=== PATIENT | male | born 1975 | race Caucasian/White ===

== ENCOUNTER 2019-08-07 09:55 | Emergency (ER) | payer BC, SELFPAY ==
[2019-08-07] VITALS (10 sets, daily range): BP systolic 120–127; BP diastolic 84–94; PULSE 74–91; RESP 11–19; TEMP 36.6–36.8; O2SAT 93–97
--- NOTE | 2019-08-07 10:00 | ED.GENADUL_ITS ---
Discharge Plan Disposition Patient Disposition: HOME Condition: Improving Discharge Details Chief Complaint: GenMedical Clinical Impression: Headache, migraine Primary Care Provider: Marilin,Local ED Provider: Jim Raya Home Meds and New Rx's Prescriptions: No Action No Known Home Meds RF: 0 Discharge Instructions Additional Instructions: Home to rest today. Small, frequent sips of fluids so that you maintain hydration. Please sleep in a dark quiet room. May continue Tylenol next dose in 2 hours or ibuprofen next dose in 4 hours if needed. Medical Decision Making 44-year-old male presents from [facility] where he developed acute right-sided headache similar to previous migraines. He is not hypertensive or febrile, has not had trauma. Neurologic exam is without focal deficits. IV was placed, fluids initiated, patient given parenteral medications with Toradol, antiemetic, dexamethasone. He had significant improvement of the headache to approximately 2-3 out of 10. His vital signs remained normal. Consistent with migraine headache that is improving. We will discharged home at this time. He understands homecare as well as return precautions. HPI General Mode of arrival: EMS . Date/Time Provider Initiated Documentation: 08/07/19 10:42 . Limitations to Documentation: no limitations . Information obtained by: patient . History of Present Illness 44 year old M presents to the emergency department with the chief complaint of Headache, right-sided, similar to migraine, described as severe and similar to prior episodes, Quality is described as dull and constant, and is localized to the head and right. Patient reports no radiation. Patient started experiencing this minute(s) and it has been constant. No relieving factors improve symptom(s), Other factors that worsen symptoms (Bright lights) . Patient notes nausea/vomiting and other ([place] lightheaded, no syncope, no chest pain). Patient did receive the following treatments prior to arrival, other (Morphine given by EMS) Related Data Home Medications Medication Instructions Recorded Confirmed Unknown [No Known Home Meds] 06/07/17 08/07/19 Allergies Allergy/AdvReac Type Severity Reaction Status Date / Time No Known Allergies Allergy Unverified 08/07/19 10:02 Review of Systems Narrative: No fall or injury. Denies recent illness. No neck pain or fever. 7 systems reviewed and otherwise negative COUNT INCLUDES THE [facility] Social History Smoking/Tobacco Use Status: Never Alcohol Intake: never Substance use type: does not use Do you feel safe at home: Yes Do you feel safe in your relationship?: Yes Exam Narrative Exam Narrative: GEN: awake, alert, oriented 3. Pleasant, well groomed, interactive, lying in a darkened room. HEAD: Normocephalic, atraumatic ENT: Mucous membranes moist, External ear exam unremarkable EYES: PERRL, EOMI NECK: Full ROM, no AGUS, no menigismus CHEST/RESP: Nontender, clear to auscultation bilateral, no wheeze/rhonchi/rales CARDIOVASCULAR: RRR, no murmur, rub jun. 2+ Rad pulse bilateral ABDOMEN: Soft, nontender, no mass. +Bowel sounds EXT: Full ROM, no edema, no rash Neuro: Grossly normal neurologic exam, conversant, interactive. Psych: Speech fluent, thoughts congruent, affect normal
[2019-08-07] MEDS: Dexamethasone 10 MG/ML VIAL IVP (10:14)
[2019-08-07] MEDS: Ketorolac 30 MG/ML VIAL IVP (10:15)
[2019-08-07] MEDS: Normal Saline 1,000 ML 1000 ML IV (10:15)
[2019-08-07] MEDS: Ondansetron 4 MG/2 ML VIAL IVP (10:15)
== END 2019-08-07 11:42 | disposition home or self-care (01) ==
PROVIDERS: Emergency Provider Emergency Medicine
DX: G43.809 Other migraine, not intractable, without status migrainosus (principal)
CPT/HCPCS: 96365; 96374; 96375; 99284; J1100; J1885; J2405